=== PATIENT | male | born 1955 | race American Indian/Alaskan Native ===

== ENCOUNTER 2019-10-19 21:36 | Emergency (ER) | payer MEDICAID ==
[2019-10-19 22:30] VITALS: BP 112/62; PULSE 77
[2019-10-19] MEDS ORDERED: Albuterol/Ipratropium 3.0-0.5 MG/3 ML Neb Soln NEB ONE (22:45)
--- NOTE | 2019-10-19 22:50 | EDM.PDOC ---
ED HPI GENERAL MEDICAL PROBLEM - General Chief Complaint: Respiratory Problem Stated Complaint: COPD BLEEDING RECTAL Time Seen by Provider: 10/19/19 22:38 Source of Information: Reports: Patient, RN Notes Reviewed History Limitations: Reports: No Limitations - History of Present Illness INITIAL COMMENTS - FREE TEXT/NARRATIVE: 64-year-old gentleman presents emergency department today complaint of head congestion, he has a known history of chronic obstructive pulmonary disease is currently residing at [facility] for alcohol treatment states he is been ill for about a week has had a chills and does produce white sputum 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: Other (see below) 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: Neb head Pain Score (Numeric/FACES): 4 - Related Data Allergies Allergy/AdvReac Type Severity Reaction Status Date / Time Penicillins Allergy Severe Anaphylactic Verified 10/19/19 22:01 Shock venom-honey bee Allergy Severe Anaphylactic Verified 10/19/19 22:01 [bee venom (honey bee)] Shock Home Meds: Home Meds Folic Acid 1 mg PO BEDTIME 03/30/16 [History] Lurasidone [Latuda] 40 mg PO BEDTIME 03/30/16 [History] Mirtazapine 45 mg PO BEDTIME 03/30/16 [History] Sertraline [Zoloft] 50 mg PO DAILY 03/30/16 [History] Simvastatin [Zocor] 20 mg PO DAILY 03/30/16 [History] Tamsulosin [Flomax] 0.4 mg PO DAILY 03/30/16 [History] Thiamine [Vitamin B-1] 1 tab PO DAILY 03/30/16 [History] Albuterol [IJD: Albuterol HFA] 2 puff INH BID 07/29/16 [History] Budesonide/Formoterol [Symbicort 160-4.5 MCG] 2 puff INH BID 10/19/19 [History] Tiotropium [place] [Spiriva Respimat] 1 inh INH DAILY 10/19/19 [History] Past Medical History Respiratory History: Reports: COPD Genitourinary History: Reports: BPH, Other (See Below) Other Genitourinary History: prostate cancer Musculoskeletal History: Reports: Back Pain, Chronic, Other (See Below) Other Musculoskeletal History: herniated disc Psychiatric History: Reports: Addiction, Depression Oncologic (Cancer) History: Reports: Prostate, Other (See Below) Other Oncologic History: patient staes that he has an abdominal tumor - Infectious Disease History Infectious Disease History: Reports: Chicken Pox Other Infectious Disease History: unable to obtain - Past Surgical History GI Surgical History: Reports: Hernia, Abdominal Musculoskeletal Surgical History: Reports: Other (See Below) Social & Family History - Family History Family Medical History: Unobtainable - Tobacco Use Smoking Status *Q: Current Every Day Smoker Years of Tobacco use: 40 Packs/Tins Daily: 1 Second Hand Smoke Exposure: No - Caffeine Use Caffeine Use: Reports: Coffee - Recreational Drug Use Recreational Drug Use: No ED ROS GENERAL - Review of Systems Review Of Systems: See Below Constitutional: Reports: Chills HEENT: Reports: Sinus Problem Respiratory: Reports: No Symptoms Cardiovascular: Reports: No Symptoms GI/Abdominal: Reports: No Symptoms ED EXAM, GENERAL - Physical Exam Exam: See Below Exam Limited By: No Limitations General Appearance: Alert, WD/WN, No Apparent Distress Throat/Mouth: Normal Inspection, Normal Lips, Normal Teeth, Normal Gums, Normal Oropharynx, Normal Voice, No Airway Compromise Respiratory/Chest: No Accessory Muscle Use, Decreased Breath Sounds Cardiovascular: Regular Rate, Rhythm, No Murmur Course - Vital Signs Last Recorded V/S: Last Vital Signs Temp 98.5 F 10/19/19 22:26 Pulse 77 10/19/19 22:26 Resp 14 10/19/19 22:26 BP 112/62 10/19/19 22:26 Pulse Ox 93 L 10/19/19 22:26 - Orders/Labs/Meds Orders: Active Orders 24 hr Category Date Time Status RT Aerosol Therapy [RC] ASDIRECTED Care 10/19/19 22:45 Ordered Meds: Medications Discontinued Medications Generic Name Dose Route Start Last Admin Trade Name Shruti PRN Reason Stop Dose Admin Albuterol/Ipratropium 3 ml 10/19/19 22:45 Duoneb 3.0-0.5 Mg/3 Ml NEB 10/19/19 22:46 ONETIME ONE Departure - Departure Time of Disposition: 22:49 Disposition: Home, Self-Care 01 Condition: Fair Clinical Impression: Sinusitis Qualifiers: Sinusitis location: frontal Chronicity: acute Recurrence: non-recurrent Qualified Code(s): J01.10 - Acute frontal sinusitis, unspecified - Discharge Information Instructions: How to Perform a Sinus Rinse, [id number], Sinusitis, Adult, [id number] Referrals: PCP,None [Primary Care Provider] - Additional Instructions: Take full course of antibiotics, please followup with your primary care provider in 7-10 days if not better, please call return to the emergency department with worsening of symptoms. Sepsis Event Note - Evaluation Sepsis Screening Result: No Definite Risk - Focused Exam Vital Signs: Vital Signs Temp Pulse Resp BP Pulse Ox 10/19/19 22:26 98.5 F 77 14 112/62 93 L 10/19/19 21:59 98.6 F 80 16 109/58 L 93 L Date Exam was Performed: 10/19/19 Time Exam was Performed: 22:46 - My Orders Last 24 Hours: My Active Orders 10/19/19 22:45 RT Aerosol Therapy [RC] ASDIRECTED - Assessment/Plan Last 24 Hours: My Active Orders 10/19/19 22:45 RT Aerosol Therapy [RC] ASDIRECTED Plan: Assessment Acuity = acute Site and laterality = sinusitis Etiology = probable bacterial cause Manifestations = sinus pressure Location of injury = Home Lab values = none Plan Like to treat empirically Augmentin 875 p.o. twice daily x10 days follow-up primary care in 7 to 10 days if no improvement This note was dictated using [employer] voice recognition software please call with any questions on syntax or grammar.
[2019-10-19] MEDS ORDERED: Codeine/guaiFENesin 100mg-10 MG/5 ML Syrup 10 ML Cup PO ONE (23:14)
== END 2019-10-20 00:46 | disposition home or self-care (01) ==
LOC: JP.ED 21:36
DX: J01.10 Acute frontal sinusitis, unspecified (principal); J44.9 Chronic obstructive pulmonary disease, unspecified; N40.0 Benign prostatic hyperplasia without lower urinary tract symptoms; F32.9 Major depressive disorder, single episode, unspecified; F17.210 Nicotine dependence, cigarettes, uncomplicated; Z88.0 Allergy status to penicillin; Z91.030 Bee allergy status; Z79.899 Other long term (current) drug therapy; Z79.51 Long term (current) use of inhaled steroids
CPT/HCPCS: 99283; 99284; A9270; J7620-GY

== ENCOUNTER 2020-04-25 12:41 | Inpatient (IN) | payer MEDICAID ==
--- NOTE | 2020-04-25 13:11 | EDM.PDOCBH ---
ED HPI GENERAL MEDICAL PROBLEM - General Chief Complaint: Drug or Alcohol Abuse Stated Complaint: MEDICAL VIA [facility] Time Seen by Provider: 04/25/20 13:00 Source of Information: Reports: Patient, EMS History Limitations: Reports: Altered Mental Status, Intoxication - History of Present Illness INITIAL COMMENTS - FREE TEXT/NARRATIVE: 64-year-old male chronic alcoholic with COPD arrived at [facility] for detox but he appeared hypoxic, was fainting, and they were concerned he needed medical clearance before he could be admitted so they called the ambulance. He is obviously intoxicated. On arrival his O2 sats were only in the 80s but he was not acting significantly short of breath. No fevers or chills. He is angry that he could not get directly admitted. Onset: Unknown/Unsure - Related Data Allergies Allergy/AdvReac Type Severity Reaction Status Date / Time Penicillins Allergy Severe Anaphylactic Verified 10/19/19 22:01 Shock venom-honey bee Allergy Severe Anaphylactic Verified 10/19/19 22:01 [bee venom (honey bee)] Shock Home Meds: Home Meds Mirtazapine 45 mg PO BEDTIME 03/30/16 [History] Sertraline [Zoloft] 50 mg PO DAILY 03/30/16 [History] Simvastatin [Zocor] 20 mg PO DAILY 03/30/16 [History] Tamsulosin [Flomax] 0.4 mg PO DAILY 03/30/16 [History] Albuterol [IJD: Albuterol HFA] 2 puff INH BID 07/29/16 [History] Budesonide/Formoterol [Symbicort 160-4.5 MCG] 2 puff INH BID 10/19/19 [History] Tiotropium [place] [Spiriva Respimat] 1 inh INH DAILY 10/19/19 [History] Aspirin [Aspir 81] 81 mg PO DAILY 04/25/20 [History] Cetirizine HCl 10 mg PO DAILY 04/25/20 [History] Cholecalciferol (Vitamin D3) [Vitamin D3] 25 mcg PO DAILY 04/25/20 [History] Multivitamin [Multivitamins] 1 cap PO DAILY 04/25/20 [History] Past Medical History Respiratory History: Reports: COPD Other Respiratory History: Uses Oxygen at bedtime Gastrointestinal History: Reports: None Genitourinary History: Reports: BPH, Other (See Below) Other Genitourinary History: prostate cancer Musculoskeletal History: Reports: Back Pain, Chronic, Other (See Below) Other Musculoskeletal History: herniated disc Psychiatric History: Reports: Addiction, Depression Oncologic (Cancer) History: Reports: Prostate, Other (See Below) Other Oncologic History: patient staes that he has an abdominal tumor - Infectious Disease History Infectious Disease History: Reports: Chicken Pox Other Infectious Disease History: unable to obtain - Past Surgical History GI Surgical History: Reports: Hernia, Abdominal Musculoskeletal Surgical History: Reports: Other (See Below) Social & Family History - Family History Family Medical History: Unobtainable - Caffeine Use Caffeine Use: Reports: Coffee ED ROS GENERAL - Review of Systems Review Of Systems: See Below Constitutional: Reports: Malaise. Denies: Fever, Chills HEENT: Denies: Throat Pain Respiratory: Reports: Shortness of Breath, Wheezing GI/Abdominal: Denies: Nausea, Vomiting Skin: Reports: No Symptoms Neurological: Reports: Weakness. Denies: Headache ED EXAM, BEHAVIORAL HEALTH - Physical Exam Exam: See Below Exam Limited By: Intoxication General Appearance: Alert, Mild Distress (Initially short of breath but calmed down and sat stabilized with O2 supplementation) Eye Exam: Bilateral Eye: EOMI (No jaundice) Head: Atraumatic Respiratory/Chest: No Respiratory Distress (No significant respiratory distress at the time of my exam, he had calm down. Diffuse decreased breath sounds bilaterally) Cardiovascular: Regular Rate, Rhythm. No: Tachycardia GI/Abdominal: Soft, Non-Tender Extremities: No: Pedal Edema Neurological: Other (Patient is fairly intoxicated, responds to questions appropriately but slow with slurred speech) Psychiatric: Flat Affect, Uncooperative. No: Homicidal Thoughts, Suicidal Thoughts Skin Exam: Warm, Dry COURSE, BEHAVIORAL HEALTH COMP - Course Vital Signs: Last Vital Signs Temp 97.1 F 04/25/20 16:01 Pulse 73 04/25/20 16:01 Resp 27 H 04/25/20 16:01 BP 128/71 04/25/20 16:01 Pulse Ox 94 L 04/25/20 16:10 Orders, Labs, Meds: Medication Orders Acetaminophen (Tylenol) 650 mg PO Q4H PRN PRN Reason: Pain (Mild 1-3)/fever Albuterol (Proventil Neb Soln) 2.5 mg NEB Q4H PRN PRN Reason: Shortness Of Breath/wheezing Albuterol/Ipratropium (Duoneb 3.0-0.5 Mg/3 Ml) 3 ml NEB QIDRT [facility] Last Admin: 04/25/20 16:27 Dose: 3 ml Documented by: YANIKC Aspirin (Halfprin) 81 mg PO DAILY [facility] Cetirizine HCl (Zyrtec) 10 mg PO DAILY [facility] Chlordiazepoxide HCl (Librium) 25 mg PO Q8H [facility] Last Admin: 04/25/20 16:27 Dose: 25 mg Documented by: YANICK Enoxaparin Sodium (Lovenox) 40 mg SUBCUT Q24H [facility] Last Admin: 04/25/20 16:40 Dose: 40 mg Documented by: YANICK Folic Acid (Folic Acid) 1 mg PO DAILY [facility] Last Admin: 04/25/20 16:41 Dose: 1 mg Documented by: YANICK Gabapentin (Neurontin) 400 mg PO Q8H [facility] Last Admin: 04/25/20 16:40 Dose: 400 mg Documented by: YANICK Glycopyrrolate (Seebri Neohaler) 15.6 mcg IH BIDRT [facility] Sodium Chloride (Normal Saline) 1,000 mls @ 125 mls/hr IV ASDIRECTED [facility] Multivitamins/Minerals 10 ml/Thiamine HCl 100 mg/ Folic Acid 1 mg/ Magnesium Sulfate 2 gm/ Sodium Chloride 1,015.2 mls @ 100 mls/hr IV ONETIME ONE Stop: 04/26/20 04:09 Doxycycline Hyclate 100 mg/ (Sodium Chloride) 100 mls @ 100 mls/hr IV Q12H [facility] Last Admin: 04/25/20 17:16 Dose: 100 mls/hr Documented by: YANICK Ceftriaxone Sodium 1 gm/ (Sodium Chloride) 50 mls @ 100 mls/hr IV Q24H [facility] Last Admin: 04/25/20 16:35 Dose: 100 mls/hr Documented by: YANICK Lactobacillus Rhamnosus (Culturelle) 1 cap PO BID [facility] Last Admin: 04/25/20 16:40 Dose: 1 cap Documented by: YANICK Lorazepam (Ativan) 0 mg IV ASDIRECTED PRN; Protocol PRN Reason: ETOH WITHDRAWAL Methylprednisolone Sodium Succinate (Solu-Medrol) 40 mg IVPUSH Q6H [facility] Last Admin: 04/25/20 16:40 Dose: 40 mg Documented by: YANICK Nicotine (Habitrol) 21 mg TRDERM DAILY [facility] Last Admin: 04/25/20 16:40 Dose: 21 mg Documented by: YANICK Nicotine Polacrilex (Nicorelief) 2 mg CHEW Q1H PRN PRN Reason: Other Ondansetron HCl (Zofran) 4 mg IV Q4H PRN PRN Reason: Nausea/Vomiting Polyethylene Glycol (Miralax) 17 gm PO DAILY PRN PRN Reason: Constipation Fluticasone/Salmeterol (Fluticasone-Salmeterol 232-14 Mcg Powder Inha) 1 puff INH BIDRT [facility] Sertraline HCl (Zoloft) 50 mg PO DAILY [facility] Simvastatin (Zocor) 20 mg PO DAILY [facility] Sodium Chloride (Saline Flush) 10 ml FLUSH ASDIRECTED PRN PRN Reason: Keep Vein Open Tamsulosin HCl (Flomax) 0.4 mg PO DAILY [facility] Thiamine HCl (Vitamin B-1) 100 mg PO DAILY [facility] Last Admin: 04/25/20 16:41 Dose: 100 mg Documented by: YANICK Laboratory Tests 04/25/20 04/25/20 04/25/20 Range/Units 13:27 13:27 13:27 WBC 10.7 (4.5-11.0) K/uL RBC 5.40 (4.30-5.90) M/uL Hgb 16.1 H D (12.0-15.0) g/dL Hct 49.5 (40.0-54.0) % MCV 92 (80-98) fL MCH 30 (27-31) pg MCHC 33 (32-36) % Plt Count 261 (150-400) K/uL Neut % (Auto) 58 (36-66) % Lymph % (Auto) 35 (24-44) % Placer % (Auto) 6 (2-6) % Eos % (Auto) 0 L (2-4) % Baso % (Auto) 1 (0-1) % Sodium 143 (140-148) mmol/L Potassium 3.6 (3.6-5.2) mmol/L Chloride 102 (100-108) mmol/L Carbon Dioxide 30 (21-32) mmol/L Anion Gap 10.8 (5.0-14.0) mmol/L BUN 10 D (7-18) mg/dL Creatinine 0.9 (0.8-1.3) mg/dL Est Cr Clr Drug Dosing 81.28 mL/min Estimated GFR (MDRD) > 60 (>60) Glucose 78 (74-106) mg/dL Calcium 8.2 L (8.5-10.1) mg/dL Total Bilirubin 0.5 (0.2-1.0) mg/dL AST 81 H D (15-37) U/L ALT 66 D (12-78) U/L Alkaline Phosphatase 64 (46-116) U/L Total Protein 7.8 (6.4-8.2) g/dL Albumin 4.2 (3.4-5.0) g/dL Globulin 3.6 H (2.3-3.5) g/dL Albumin/Globulin Ratio 1.2 (1.2-2.2) Ethyl Alcohol 317 mg/dL Medications Generic Name Dose Route Start Last Admin Trade Name Freq PRN Reason Stop Dose Admin Acetaminophen 650 mg 04/25/20 16:01 Tylenol PO Q4H PRN Pain (Mild 1-3)/fever Albuterol 2.5 mg 04/25/20 16:01 Proventil Neb Soln NEB Q4H PRN Shortness Of Breath/wheezing Albuterol/Ipratropium 3 ml 04/25/20 16:00 04/25/20 16:27 Duoneb 3.0-0.5 Mg/3 Ml NEB 3 ml QIDRT [facility] Administration Aspirin 81 mg 04/26/20 09:00 Halfprin PO DAILY [facility] Cetirizine HCl 10 mg 04/26/20 09:00 Zyrtec PO DAILY [facility] Chlordiazepoxide HCl 25 mg 04/25/20 16:00 04/25/20 16:27 Librium PO 25 mg Q8H [facility] Administration Enoxaparin Sodium 40 mg 04/25/20 17:00 04/25/20 16:40 Lovenox SUBCUT 40 mg Q24H [facility] Administration Folic Acid 1 mg 04/25/20 16:01 04/25/20 16:41 Folic Acid PO 1 mg DAILY [facility] Administration Gabapentin 400 mg 04/25/20 16:00 04/25/20 16:40 Neurontin PO 400 mg Q8H [facility] Administration Glycopyrrolate 15.6 mcg 04/25/20 21:00 Seebri Neohaler IH BIDRT [facility] Sodium Chloride 1,000 mls @ 125 mls/hr 04/25/20 16:01 Normal Saline IV ASDIRECTED [facility] Multivitamins/Minerals 10 ml/ 1,015.2 mls @ 100 mls/hr 04/25/20 18:00 Thiamine HCl 100 mg/ Folic IV 04/26/20 04:09 Acid 1 mg/ Magnesium Sulfate 2 ONETIME ONE gm/ Sodium Chloride Doxycycline Hyclate 100 mg/ 100 mls @ 100 mls/hr 04/25/20 17:30 04/25/20 17:16 Sodium Chloride IV 100 mls/hr Q12H [facility] Administration Ceftriaxone Sodium 1 gm/ 50 mls @ 100 mls/hr 04/25/20 17:00 04/25/20 16:35 Sodium Chloride IV 100 mls/hr Q24H [facility] Administration Lactobacillus Rhamnosus 1 cap 04/25/20 16:01 04/25/20 16:40 Culturelle PO 1 cap BID [facility] Administration Lorazepam 0 mg 04/25/20 16:01 Ativan IV ASDIRECTED PRN ETOH WITHDRAWAL Protocol Methylprednisolone Sodium Succinate 40 mg 04/25/20 16:00 04/25/20 16:40 Solu-Medrol IVPUSH 40 mg Q6H [facility] Administration Nicotine 21 mg 04/25/20 16:01 04/25/20 16:40 Habitrol TRDERM 21 mg DAILY [facility] Administration Nicotine Polacrilex 2 mg 04/25/20 16:01 Nicorelief CHEW Q1H PRN Other Ondansetron HCl 4 mg 04/25/20 16:01 Zofran IV Q4H PRN Nausea/Vomiting Polyethylene Glycol 17 gm 04/25/20 16:01 Miralax PO DAILY PRN Constipation Fluticasone/Salmeterol 1 puff 04/25/20 21:00 Fluticasone-Salmeterol 232-14 Mcg Powder Inha INH BIDRT [facility] Sertraline HCl 50 mg 04/26/20 09:00 Zoloft PO DAILY [facility] Simvastatin 20 mg 04/26/20 09:00 Zocor PO DAILY [facility] Sodium Chloride 10 ml 04/25/20 16:01 Saline Flush FLUSH ASDIRECTED PRN Keep Vein Open Tamsulosin HCl 0.4 mg 04/26/20 09:00 Flomax PO DAILY [facility] Thiamine HCl 100 mg 04/25/20 16:01 04/25/20 16:41 Vitamin B-1 PO 100 mg DAILY [facility] Administration Re-Assessment/Re-Exam: Patient responded to supplemental oxygen. EtOH is 0.317, CBC and CMP were otherwise fairly reassuring. However the patient left of have a cigarette and was found hypoxic outside and unable to get up and come back inside. O2 s aturations had dropped again into the upper 70s to low 80s and he was unable to communicate because of hypoxia. At this point a chest x-ray was obtained that showed emphysematous changes but no infiltrate. I do not think this patient is stable enough to go to detox and I talked to Dr. Moss of the hospitalist service and he agreed to see the patient to consider admission. COVID-[address] Moss kindly saw the patient and admitted him but the patient then went AMA, signed the form and walked out. Shortly after the patient left he was found laying in the parking lot at the bottom of the stairs. He was brought back in and admitted, possibly on a 72- hour hold to prevent him from leaving again. Departure - Departure Time of Disposition: 15:27 Disposition: Admitted As Inpatient 67 Clinical Impression: COPD exacerbation Alcohol intoxication Qualifiers: Complication of substance-induced condition: uncomplicated Qualified Code(s): F10.920 - Alcohol use, unspecified with intoxication, uncomplicated - Discharge Information Sepsis Event Note (ED) - Evaluation Sepsis Screening Result: No Definite Risk - Focused Exam Vital Signs: Vital Signs Temp Pulse Resp BP Pulse Ox Pulse Ox 04/25/20 13:54 90 L 04/25/20 12:46 98.6 F 73 18 137/76 80 L 04/25/20 12:45 98.6 F 73 18 137/76 80 L
--- NOTE | 2020-04-25 14:43 | PCM.HP.2 ---
H&P History of Present Illness - General Date of Service: 04/25/20 Admit Problem/Dx: Admission Diagnosis/Problem Admission Diagnosis/Problem COPD, Severe chronic obstructive pulmonary disease Source of Information: Patient, Provider, RN Notes Reviewed History Limitations: Reports: Altered Mental Status (Intoxicated) - History of Present Illness Initial Comments - Free Text/Narative: Mr. Hernández is a 64-year-old gentleman who I was asked to see in the emergency department for admission because of hypoxia, COPD exacerbation, [facility] At the time I saw him he was very intoxicated and unable to provide a meaningful history concerning recent symptoms or events. Information obtained from emergency department staff was that he had been found unresponsive outside of [facility]. EMS was activated and when they arrived he was found to be hypoxic with oxygen saturation in the low 80s. He was placed on supplemental oxygen and brought into the emergency department for further evaluation. Oxygen saturations remained fairly good with supplemental oxygen. Chest x-ray showed no obvious infiltrates, he does have a known history of COPD. He did go outside of the emergency room for cigarette and became extremely short of breath with decreased level of consciousness and oxygen saturations into the low 70s. Following that he did agreed to admission but then shortly thereafter attempted to leave AGAINST MEDICAL ADVICE. He was found at the bottom of the ambulance ramp again hypoxic and unresponsive. At that time he was placed on a 72-hour hold, because of inability to care for himself and p lacing himself in extremely dangerous situation. - Related Data Allergies/Adverse Reactions: Allergies Allergy/AdvReac Type Severity Reaction Status Date / Time Penicillins Allergy Severe Anaphylactic Verified 10/19/19 22:01 Shock venom-honey bee Allergy Severe Anaphylactic Verified 10/19/19 22:01 [bee venom (honey bee)] Shock Home Medications: Home Meds Mirtazapine 45 mg PO BEDTIME 03/30/16 [History] Sertraline [Zoloft] 50 mg PO DAILY 03/30/16 [History] Simvastatin [Zocor] 20 mg PO DAILY 03/30/16 [History] Tamsulosin [Flomax] 0.4 mg PO DAILY 03/30/16 [History] Albuterol [IJD: Albuterol HFA] 2 puff INH BID 07/29/16 [History] Budesonide/Formoterol [Symbicort 160-4.5 MCG] 2 puff INH BID 10/19/19 [History] Tiotropium [place] [Spiriva Respimat] 1 inh INH DAILY 10/19/19 [History] Aspirin [Aspir 81] 81 mg PO DAILY 04/25/20 [History] Cetirizine HCl 10 mg PO DAILY 04/25/20 [History] Cholecalciferol (Vitamin D3) [Vitamin D3] 25 mcg PO DAILY 04/25/20 [History] Multivitamin [Multivitamins] 1 cap PO DAILY 04/25/20 [History] Past Medical History Respiratory History: Reports: COPD Other Respiratory History: Uses Oxygen at bedtime Gastrointestinal History: Reports: None Genitourinary History: Reports: BPH, Other (See Below) Other Genitourinary History: prostate cancer Musculoskeletal History: Reports: Back Pain, Chronic, Other (See Below) Other Musculoskeletal History: herniated disc Psychiatric History: Reports: Addiction, Depression Oncologic (Cancer) History: Reports: Prostate, Other (See Below) Other Oncologic History: patient staes that he has an abdominal tumor - Infectious Disease History Infectious Disease History: Reports: Chicken Pox Other Infectious Disease History: unable to obtain - Past Surgical History GI Surgical History: Reports: Hernia, Abdominal Musculoskeletal Surgical History: Reports: Other (See Below) Social & Family History - Family History Family Medical History: Unobtainable - Caffeine Use Caffeine Use: Reports: Coffee H&P Review of Systems - Review of Systems: Review Of Systems: See Below General: Reports: ROS unobtainable (Alcohol intoxication) Exam - Exam Exam: See Below - Vital Signs Vital Signs: Last Vital Signs Temp 98.6 F 04/25/20 12:46 Pulse 73 04/25/20 12:46 Resp 18 04/25/20 12:46 BP 137/76 04/25/20 12:46 Pulse Ox 90 L 04/25/20 13:54 Weight: 200 lb - Exam Quality Assessment: Supplemental Oxygen, DVT Prophylaxis General: Sedated, Lethargic HEENT: Conjunctiva Clear, Hearing Intact, Normal Nasal Septum, Posterior Pharynx Clear, Pupils Equal. No: Mucosa Moist & [place] Neck: Supple, Trachea Midline, +2 Carotid Pulse wo Bruit Lungs: Normal Respiratory Effort, Decreased Breath Sounds, Wheezing. No: Crackles, Rales, Rhonchi Cardiovascular: Regular Rate, Regular Rhythm, Normal S1, Normal S2. No: Systolic Murmur, Diastolic Murmur GI/Abdominal Exam: Soft, Non-Tender, No Organomegaly, No Distention Back Exam: Normal Inspection, Full Range of Motion Extremities: Non-Tender, No Pedal Edema Skin: Warm, Dry, Intact Neurological: Cranial Nerves Intact, Strength Equal Bilateral, Normal Speech, Normal Tone, Sensation Intact. No: Focal Deficit Neuro Extensive - Mental Status: Inattentive, Memory Loss-Recent Events, Slow Response to Commands - Patient Data Lab Results Last 24 hrs: Laboratory Results - last 24 hr 04/25/20 04/25/20 04/25/20 Range/Units 13:27 13:27 13:27 WBC 10.7 (4.5-11.0) K/uL RBC 5.40 (4.30-5.90) M/uL Hgb 16.1 H D (12.0-15.0) g/dL Hct 49.5 (40.0-54.0) % MCV 92 (80-98) fL MCH 30 (27-31) pg MCHC 33 (32-36) % Plt Count 261 (150-400) K/uL Neut % (Auto) 58 (36-66) % Lymph % (Auto) 35 (24-44) % [place] % (Auto) 6 (2-6) % Eos % (Auto) 0 L (2-4) % Baso % (Auto) 1 (0-1) % Sodium 143 (140-148) mmol/L Potassium 3.6 (3.6-5.2) mmol/L Chloride 102 (100-108) mmol/L Carbon Dioxide 30 (21-32) mmol/L Anion Gap 10.8 (5.0-14.0) mmol/L BUN 10 D (7-18) mg/dL Creatinine 0.9 (0.8-1.3) mg/dL Est Cr Clr Drug Dosing 81.28 mL/min Estimated GFR (MDRD) > 60 (>60) Glucose 78 (74-106) mg/dL Calcium 8.2 L (8.5-10.1) mg/dL Total Bilirubin 0.5 (0.2-1.0) mg/dL AST 81 H D (15-37) U/L ALT 66 D (12-78) U/L Alkaline Phosphatase 64 (46-116) U/L Total Protein 7.8 (6.4-8.2) g/dL Albumin 4.2 (3.4-5.0) g/dL Globulin 3.6 H (2.3-3.5) g/dL Albumin/Globulin Ratio 1.2 (1.2-2.2) Ethyl Alcohol 317 mg/dL Result Diagrams: 04/25/20 13:27 04/25/20 13:27 Sepsis Event Note - Evaluation Sepsis Screening Result: No Definite Risk - Focused Exam Vital Signs: Vital Signs Temp Pulse Resp BP Pulse Ox Pulse Ox 04/25/20 13:54 90 L 04/25/20 12:46 98.6 F 73 18 137/76 80 L 04/25/20 12:45 98.6 F 73 18 137/76 80 L Date Exam was Performed: 04/25/20 Time Exam was Performed: 15:43 *Q Meaningful Use (ADM) - VTE Risk Assess *Q Each Risk Factor Represents 1 Point: Obesity ( BMI > 25 kg/m2), Abnormal Pulmonary Function (COPD) Total Score 1 Point Risk Factors: 2 Each Risk Factor Represents 2 Points: None Total Score 2 Point Risk Factors: 0 Each Risk Factor Represents 3 Points: None Total Score 3 Point Risk Factors: 0 Each Risk Factor Represents 5 Points: None Total Score 5 Point Risk Factors: 0 Venous Thromboembolism Risk Factor Score *Q: 2 Problem List Initiated/Reviewed/Updated: Yes Orders Last 24hrs: Active Orders 24 hr Category Date Time Status Patient Status Manage Transfer [TRANSFER] Routine ADT 04/25/20 14:31 Ordered Chest 1V Frontal [CR] Routine Exams 04/25/20 13:56 Taken CORONAVIRUS COVID-19 ANDREI [MOLEC] Routine Lab 04/25/20 14:35 Received Resuscitation Status Routine Resus Stat 04/25/20 14:33 Ordered Assessment/Plan Comment:: ASSESSMENT AND PLAN HYPOXIC RESPIRATORY FAILURE-secondary to COPD exacerbation and probable underlying bronchitis, located by significant alcohol intoxication -Arterial blood gases now -Supplemental oxygen as needed -Nebulized albuterol and DuoNebs -Solu-Medrol 40 mg IV every 6 hours -IV ceftriaxone and doxycycline -Consider use of noninvasive positive pressure ventilation for further respiratory compromise COPD EXACERBATION-he does use oxygen at night, but not during the day -Management as above BRONCHITIS-did and found to be negative to COVID-19 -Management as above ALCOHOL INTOXICATION-he has continued to place himself in an unsafe situation. He has been found at the end of the ambulance ramp hypoxic and unresponsive. -72-hour hold so he can be adequately treated for hypoxia -Alcohol withdrawal protocol -Banana bag -Gabapentin 400 mg p.o. every 8 hours MAINTENANCE ISSUES -DVT prophylaxis; Lovenox 40 mg subcu daily -GI prophylaxis; not indicated -Klein catheter; not indicated -Nutrition; regular diet -Nicotine dependence; nicotine patch and gum CODE STATUS-FULL CODE ADMISSION STATUS-patient will be admitted to inpatient status, expect at least a 2 night hospital stay for evaluation and management of problems as outlined above. At the time of this admission I do not reasonably expected evaluation and management of this problem will require more than a 96 hour hospital stay. DISPOSITION-anticipate discharge to home after the hospital stay. PRIMARY CARE PROVIDER- - Mortality Measure Prognosis:: Good
--- NOTE | 2020-04-25 15:30 | CR ---
CHEST: Portable 04/25/2020 at 2:10 PM CLINICAL HISTORY:Dyspnea COMPARISON:2016 FINDINGS: The heart size, pulmonary vascularity and hilar structures are normal. No infiltrate effusion or pneumothorax is seen. There are atherosclerotic changes in the aorta. IMPRESSION: No acute cardiopulmonary process.
[2020-04-25] MEDS ORDERED: Polyethylene Glycol 3350 Powder 17 GM Packet PO PRN (16:01)
[2020-04-25] MEDS ORDERED: Albuterol 0.083% 2.5 MG/3 ML Neb Soln NEB PRN (16:01)
[2020-04-25] MEDS ORDERED: Sodium Chloride 0.9% 1,000 ML IV SCH (16:01)
[2020-04-25] MEDS ORDERED: Nicotine Polacrilex 2 MG Gum CHEW PRN (16:01)
[2020-04-25] MEDS ORDERED: Ondansetron 4 MG/2 ML SDV IV PRN (16:01)
[2020-04-25] MEDS ORDERED: Sodium Chloride 0.9% 10 ML Syringe FLUSH PRN (16:01)
[2020-04-25] MEDS ORDERED: LORazepam 2 MG/ML SDV IV PRN (16:01)
[2020-04-25] MEDS: chlordiazePOXIDE 25 MG Cap PO SCH (16:27)
[2020-04-25] MEDS: Albuterol/Ipratropium 3.0-0.5 MG/3 ML Neb Soln NEB SCH ×2 (16:27→20:49)
[2020-04-25] MEDS: cefTRIAXone 1 GM in Sodium Chloride 0.9% 50 ML IV SCH (16:35)
[2020-04-25] MEDS: Nicotine 21 MG/24 Hr Patch TRDERM SCH (16:40)
[2020-04-25] MEDS: Lactobacillus Rhamnosus GG (Probiotic) Cap PO SCH ×2 (16:40→20:49)
[2020-04-25] MEDS: methylPREDNISolone Sodium Succinate 40 MG/1 ML SDV IVPUSH SCH ×2 (16:40→21:53)
[2020-04-25] MEDS: Gabapentin 400 MG Cap PO SCH (16:40)
[2020-04-25] MEDS: Enoxaparin 40 MG/0.4 ML Syringe SUBCUT SCH (16:40)
[2020-04-25] MEDS: Folic Acid 1 MG Tab PO SCH (16:41)
[2020-04-25] MEDS: Thiamine 100 MG Tab PO SCH (16:41)
[2020-04-25] MEDS: Doxycycline 100 MG in Sodium Chloride 0.9% 100 ML IV SCH (17:16)
[2020-04-25] MEDS: Acetaminophen 325 MG Tab PO PRN (17:38)
[2020-04-25] MEDS ORDERED: MVI, Adult with Vitamin K 10 ML, Thiamine 100 MG, Folic Acid 1 MG, Magnesium Sulfate 2 ... IV ONE ×5 (18:00)
[2020-04-25] MEDS: Glycopyrrolate 15.6 MCG Cap.W.Dev Kit of 6 IH SCH (20:49)
[2020-04-25] MEDS: Fluticasone-Salmeterol 232-14 MCG Powder Inhalent INH SCH (20:49)
[2020-04-26] MEDS: Gabapentin 400 MG Cap PO SCH ×4 (01:24→21:57)
[2020-04-26] MEDS: chlordiazePOXIDE 25 MG Cap PO SCH ×4 (01:24→21:57)
[2020-04-26] MEDS: methylPREDNISolone Sodium Succinate 40 MG/1 ML SDV IVPUSH SCH ×4 (04:48→21:08)
[2020-04-26] MEDS: Doxycycline 100 MG in Sodium Chloride 0.9% 100 ML IV SCH ×2 (04:49→16:38)
[2020-04-26] MEDS: Fluticasone-Salmeterol 232-14 MCG Powder Inhalent INH SCH ×2 (07:01→21:07)
[2020-04-26] MEDS: Glycopyrrolate 15.6 MCG Cap.W.Dev Kit of 6 IH SCH ×2 (07:01→21:07)
[2020-04-26] MEDS: Albuterol/Ipratropium 3.0-0.5 MG/3 ML Neb Soln NEB SCH ×4 (07:01→21:07)
[2020-04-26] MEDS: Nicotine 21 MG/24 Hr Patch TRDERM SCH (08:10)
[2020-04-26] MEDS: Cetirizine 10 MG Tab PO SCH (08:10)
[2020-04-26] MEDS: Folic Acid 1 MG Tab PO SCH (08:10)
[2020-04-26] MEDS: Sertraline 50 MG Tab PO SCH (08:10)
[2020-04-26] MEDS: Thiamine 100 MG Tab PO SCH (08:10)
[2020-04-26] MEDS: Simvastatin 20 MG Tab PO SCH (08:10)
[2020-04-26] MEDS: Aspirin 81 MG Tab.EC PO SCH (08:10)
[2020-04-26] MEDS: Lactobacillus Rhamnosus GG (Probiotic) Cap PO SCH ×2 (08:10→21:08)
[2020-04-26] MEDS: Tamsulosin 0.4 MG Cap.ER PO SCH (08:10)
--- NOTE | 2020-04-26 09:13 | PCM.PN ---
- General Info Date of Service: 04/26/20 Subjective Update: Mr. Hernández did have increased respiratory compromise after admission, requiring use of noninvasive positive pressure ventilation. This worked well for him through the night and he feels as though his breathing is better this morning. Currently has adequate oxygenation on 3 L of oxygen via nasal cannula. Vital signs have otherwise been stable and he has remained afebrile. Functional Status: Reports: Tolerating Diet, Ambulating, Urinating - Review of Systems General: Reports: Weakness, Fatigue. Denies: Fever, Chills Pulmonary: Reports: Shortness of Breath, Wheezing. Denies: Pleuritic Chest Pain, Cough, Sputum, Hemoptysis Cardiovascular: Reports: Dyspnea on Exertion. Denies: Chest Pain, Palpitations, Orthopnea, PND, Edema, Lightheadedness Gastrointestinal: Reports: No Symptoms - Patient Data Vitals - Most Recent: Last Vital Signs Temp 96.1 F L 04/26/20 07:00 Pulse 76 04/26/20 07:01 Resp 15 04/26/20 07:00 BP 128/78 04/26/20 07:00 Pulse Ox 90 L 04/26/20 07:00 Weight - Most Recent: 174 lb 3.2 oz I&O - Last 24 Hours: Intake & Output 04/25/20 04/26/20 04/26/20 22:59 06:59 14:59 Intake Total 600 1384 Balance 600 1384 Lab Results Last 24 Hours: Laboratory Results - last 24 hr 04/25/20 04/25/20 04/25/20 Range/Units 13:27 13:27 13:27 WBC 10.7 (4.5-11.0) K/uL RBC 5.40 (4.30-5.90) M/uL Hgb 16.1 H D (12.0-15.0) g/dL Hct 49.5 (40.0-54.0) % MCV 92 (80-98) fL MCH 30 (27-31) pg MCHC 33 (32-36) % Plt Count 261 (150-400) K/uL Neut % (Auto) 58 (36-66) % Lymph % (Auto) 35 (24-44) % [place] % (Auto) 6 (2-6) % Eos % (Auto) 0 L (2-4) % Baso % (Auto) 1 (0-1) % Puncture Site ABG pH (7.350-7.450) ABG pCO2 (35.0-42.0) mmHg ABG pO2 (75.0-100.0) mmHg ABG HCO3 (22.0-26.0) mmol/L ABG Total CO2 (23.0-27.0) mmol/L ABG O2 Saturation (95.0-98.0) % ABG O2 Content (15.0-23.0) %vol ABG Base Excess mm/L ABG Hemoglobin (13.5-18.0) g/dL ABG Oxyhemoglobin % ABG Carboxyhemoglobin (0.0-1.6) % ABG Methemoglobin % Kwadwo Test O2 Delivery Device Oxygen Flow Rate L Sodium 143 (140-148) mmol/L Potassium 3.6 (3.6-5.2) mmol/L Chloride 102 (100-108) mmol/L Carbon Dioxide 30 (21-32) mmol/L Anion Gap 10.8 (5.0-14.0) mmol/L BUN 10 D (7-18) mg/dL Creatinine 0.9 (0.8-1.3) mg/dL Est Cr Clr Drug Dosing 81.28 mL/min Estimated GFR (MDRD) > 60 (>60) Glucose 78 (74-106) mg/dL Calcium 8.2 L (8.5-10.1) mg/dL Magnesium (1.8-2.4) mg/dL Total Bilirubin 0.5 (0.2-1.0) mg/dL AST 81 H D (15-37) U/L ALT 66 D (12-78) U/L Alkaline Phosphatase 64 (46-116) U/L Total Protein 7.8 (6.4-8.2) g/dL Albumin 4.2 (3.4-5.0) g/dL Globulin 3.6 H (2.3-3.5) g/dL Albumin/Globulin Ratio 1.2 (1.2-2.2) Ethyl Alcohol 317 mg/dL SARS Virus RNA (PCR) (NEGATIVE) 04/25/20 04/25/20 04/25/20 Range/Units 14:35 15:58 23:15 WBC (4.5-11.0) K/uL RBC (4.30-5.90) M/uL Hgb (12.0-15.0) g/dL Hct (40.0-54.0) % MCV (80-98) fL MCH (27-31) pg MCHC (32-36) % Plt Count (150-400) K/uL Neut % (Auto) (36-66) % Lymph % (Auto) (24-44) % [place] % (Auto) (2-6) % Eos % (Auto) (2-4) % Baso % (Auto) (0-1) % Puncture Site Lt radial Lt radial ABG pH 7.356 7.329 L (7.350-7.450) ABG pCO2 26.1 L 61.7 H (35.0-42.0) mmHg ABG pO2 55.3 L 87.6 (75.0-100.0) mmHg ABG HCO3 14.2 L 31.6 H (22.0-26.0) mmol/L ABG Total CO2 12.4 L 27.9 H (23.0-27.0) mmol/L ABG O2 Saturation 86.7 L 95.2 (95.0-98.0) % ABG O2 Content 17.1 18.9 (15.0-23.0) %vol ABG Base Excess -9.3 4.0 mm/L ABG Hemoglobin 15.7 15.1 (13.5-18.0) g/dL ABG Oxyhemoglobin 77.6 89.2 % ABG Carboxyhemoglobin 9.6 H 5.6 H (0.0-1.6) % ABG Methemoglobin 0.9 0.7 % Kwadwo Test Performed Passed O2 Delivery Device Nasal cannula Bipap Oxygen Flow Rate L Sodium (140-148) mmol/L Potassium (3.6-5.2) mmol/L Chloride (100-108) mmol/L Carbon Dioxide (21-32) mmol/L Anion Gap (5.0-14.0) mmol/L BUN (7-18) mg/dL Creatinine (0.8-1.3) mg/dL Est Cr Clr Drug Dosing mL/min Estimated GFR (MDRD) (>60) Glucose (74-106) mg/dL Calcium (8.5-10.1) mg/dL Magnesium (1.8-2.4) mg/dL Total Bilirubin (0.2-1.0) mg/dL AST (15-37) U/L ALT (12-78) U/L Alkaline Phosphatase (46-116) U/L Total Protein (6.4-8.2) g/dL Albumin (3.4-5.0) g/dL Globulin (2.3-3.5) g/dL Albumin/Globulin Ratio (1.2-2.2) Ethyl Alcohol mg/dL SARS Virus RNA (PCR) Negative (NEGATIVE) 04/26/20 04/26/20 04/26/20 Range/Units 05:00 05:00 05:50 WBC 5.1 (4.5-11.0) K/uL RBC 4.83 (4.30-5.90) M/uL Hgb 14.5 (12.0-15.0) g/dL Hct 44.1 (40.0-54.0) % MCV 91 (80-98) fL MCH 30 (27-31) pg MCHC 33 (32-36) % Plt Count 223 (150-400) K/uL Neut % (Auto) 70 H (36-66) % Lymph % (Auto) 26 (24-44) % [place] % (Auto) 3 (2-6) % Eos % (Auto) 0 L (2-4) % Baso % (Auto) 0 (0-1) % Puncture Site Left radial ABG pH 7.373 (7.350-7.450) ABG pCO2 58.7 H (35.0-42.0) mmHg ABG pO2 57.6 L (75.0-100.0) mmHg ABG HCO3 33.4 H (22.0-26.0) mmol/L ABG Total CO2 29.5 H (23.0-27.0) mmol/L ABG O2 Saturation 87.4 L (95.0-98.0) % ABG O2 Content 16.9 (15.0-23.0) %vol ABG Base Excess 6.6 mm/L ABG Hemoglobin 14.5 (13.5-18.0) g/dL ABG Oxyhemoglobin 83.4 % ABG Carboxyhemoglobin 3.6 H (0.0-1.6) % ABG Methemoglobin 1.0 % Kwadwo Test Passed O2 Delivery Device Nasal cannula Oxygen Flow Rate 2.0 L Sodium 138 L (140-148) mmol/L Potassium 4.4 (3.6-5.2) mmol/L Chloride 100 (100-108) mmol/L Carbon Dioxide 34 H (21-32) mmol/L Anion Gap 8.4 (5.0-14.0) mmol/L BUN 8 (7-18) mg/dL Creatinine 0.8 (0.8-1.3) mg/dL Est Cr Clr Drug Dosing 91.44 mL/min Estimated GFR (MDRD) > 60 (>60) Glucose 243 H (74-106) mg/dL Calcium 8.2 L (8.5-10.1) mg/dL Magnesium 2.2 (1.8-2.4) mg/dL Total Bilirubin (0.2-1.0) mg/dL AST (15-37) U/L ALT (12-78) U/L Alkaline Phosphatase (46-116) U/L Total Protein (6.4-8.2) g/dL Albumin (3.4-5.0) g/dL Globulin (2.3-3.5) g/dL Albumin/Globulin Ratio (1.2-2.2) Ethyl Alcohol mg/dL SARS Virus RNA (PCR) (NEGATIVE) Med Orders - Current: Current Medications Acetaminophen (Tylenol) 650 mg PO Q4H PRN PRN Reason: Pain (Mild 1-3)/fever Last Admin: 04/25/20 17:38 Dose: 650 mg Documented by: Albuterol (Proventil Neb Soln) 2.5 mg NEB Q4H PRN PRN Reason: Shortness Of Breath/wheezing Albuterol/Ipratropium (Duoneb 3.0-0.5 Mg/3 Ml) 3 ml NEB QIDRT [facility] Last Admin: 04/26/20 07:01 Dose: 3 ml Documented by: Aspirin (Halfprin) 81 mg PO DAILY [facility] Last Admin: 04/26/20 08:10 Dose: 81 mg Documented by: Cetirizine HCl (Zyrtec) 10 mg PO DAILY [facility] Last Admin: 04/26/20 08:10 Dose: 10 mg Documented by: Chlordiazepoxide HCl (Librium) 25 mg PO Q8H [facility] Last Admin: 04/26/20 07:38 Dose: 25 mg Documented by: Enoxaparin Sodium (Lovenox) 40 mg SUBCUT Q24H [facility] Last Admin: 04/25/20 16:40 Dose: 40 mg Documented by: Folic Acid (Folic Acid) 1 mg PO DAILY [facility] Last Admin: 04/26/20 08:10 Dose: 1 mg Documented by: Gabapentin (Neurontin) 400 mg PO Q8H [facility] Last Admin: 04/26/20 07:38 Dose: 400 mg Documented by: Glycopyrrolate (Seebri Neohaler) 15.6 mcg IH BIDRT [facility] Last Admin: 04/26/20 07:01 Dose: 1 puff Documented by: Sodium Chloride (Normal Saline) 1,000 mls @ 125 mls/hr IV ASDIRECTED [facility] Last Admin: 04/26/20 04:55 Dose: 125 mls/hr Documented by: Doxycycline Hyclate 100 mg/ (Sodium Chloride) 100 mls @ 100 mls/hr IV Q12H [facility] Last Admin: 04/26/20 04:49 Dose: 100 mls/hr Documented by: Ceftriaxone Sodium 1 gm/ (Sodium Chloride) 50 mls @ 100 mls/hr IV Q24H [facility] Last Admin: 04/25/20 16:35 Dose: 100 mls/hr Documented by: Lactobacillus Rhamnosus (Culturelle) 1 cap PO BID [facility] Last Admin: 04/26/20 08:10 Dose: 1 cap Documented by: Lorazepam (Ativan) 0 mg IV ASDIRECTED PRN; Protocol PRN Reason: ETOH WITHDRAWAL Last Admin: 04/25/20 20:50 Dose: 0.5 mg Documented by: Methylprednisolone Sodium Succinate (Solu-Medrol) 40 mg IVPUSH Q6H [facility] Last Admin: 04/26/20 04:48 Dose: 40 mg Documented by: Nicotine (Habitrol) 21 mg TRDERM DAILY [facility] Last Admin: 04/26/20 08:10 Dose: 21 mg Documented by: Nicotine Polacrilex (Nicorelief) 2 mg CHEW Q1H PRN PRN Reason: Other Ondansetron HCl (Zofran) 4 mg IV Q4H PRN PRN Reason: Nausea/Vomiting Last Admin: 04/26/20 05:00 Dose: 4 mg Documented by: Polyethylene Glycol (Miralax) 17 gm PO DAILY PRN PRN Reason: Constipation Fluticasone/Salmeterol (Fluticasone-Salmeterol 232-14 Mcg Powder Inha) 1 puff INH BIDRT [facility] Last Admin: 04/26/20 07:01 Dose: 1 puff Documented by: Sertraline HCl (Zoloft) 50 mg PO DAILY [facility] Last Admin: 04/26/20 08:10 Dose: 50 mg Documented by: Simvastatin (Zocor) 20 mg PO DAILY [facility] Last Admin: 04/26/20 08:10 Dose: 20 mg Documented by: Sodium Chloride (Saline Flush) 10 ml FLUSH ASDIRECTED PRN PRN Reason: Keep Vein Open Tamsulosin HCl (Flomax) 0.4 mg PO DAILY [facility] Last Admin: 04/26/20 08:10 Dose: 0.4 mg Documented by: Thiamine HCl (Vitamin B-1) 100 mg PO DAILY [facility] Last Admin: 04/26/20 08:10 Dose: 100 mg Documented by: Discontinued Medications Multivitamins/Minerals 10 ml/Thiamine HCl 100 mg/ Folic Acid 1 mg/ Magnesium Sulfate 2 gm/ Sodium Chloride 1,015.2 mls @ 100 mls/hr IV ONETIME ONE Stop: 04/26/20 04:09 Last Admin: 04/25/20 18:57 Dose: 100 mls/hr Documented by: - Exam Quality Assessment: Supplemental Oxygen, DVT Prophylaxis General: Alert, Oriented, Cooperative, Mild Distress Lungs: Normal Respiratory Effort, Wheezing. No: Crackles, Rales, Rhonchi Cardiovascular: Regular Rate, Regular Rhythm, No Murmurs GI/Abdominal Exam: Soft, Non-Tender, No Organomegaly, No Distention Extremities: Non-Tender, No Pedal Edema Sepsis Event Note - Evaluation Sepsis Screening Result: No Definite Risk - Focused Exam Vital Signs: Vital Signs Temp Pulse Resp BP Pulse Ox 04/26/20 07:01 76 04/26/20 07:00 96.1 F L 83 15 128/78 90 L 04/26/20 05:10 96.6 F L 14 127/78 91 L 04/26/20 04:00 15 130/67 94 L 04/26/20 03:00 18 120/64 90 L 04/26/20 01:00 22 H 115/57 L 93 L 04/26/20 00:00 20 123/61 92 L 04/25/20 23:00 22 H 119/55 L 95 04/25/20 22:00 89 29 H 119/64 86 L Date Exam was Performed: 04/26/20 Time Exam was Performed: 09:09 - Problem List Review Problem List Initiated/Reviewed/Updated: Yes - My Orders Last 24 Hours: My Active Orders 04/25/20 Lunch Regular Diet [DIET] 04/25/20 14:33 Resuscitation Status Routine 04/25/20 16:00 Albuterol/Ipratropium [DuoNeb 3.0-0.5 MG/3 ML] 3 ml NEB QIDRT Gabapentin [Neurontin] 400 mg PO Q8H chlordiazePOXIDE [Librium] 25 mg PO Q8H methylPREDNISolone Sod Succ [Solu-MEDROL] 40 mg IVPUSH Q6H 04/25/20 16:01 Acetaminophen [Tylenol] 650 mg PO Q4H PRN Albuterol [Proventil Neb Soln] 2.5 mg NEB Q4H PRN Folic Acid 1 mg PO DAILY LORazepam [Ativan] See Protocol IV ASDIRECTED PRN Lactobacillus Rhamnosus GG [Culturelle] 1 cap PO BID Nicotine Polacrilex [Nicorelief] 2 mg CHEW Q1H PRN Nicotine [Habitrol] 21 mg TRDERM DAILY Ondansetron [Zofran] 4 mg IV Q4H PRN Sodium Chloride 0.9% [Normal Saline] 1,000 ml IV ASDIRECTED Sodium Chloride 0.9% [Saline Flush] 10 ml FLUSH ASDIRECTED PRN Thiamine [Vitamin B-1] 100 mg PO DAILY polyethylene glycoL 3350 [MiraLAX] 17 gm PO DAILY PRN 04/25/20 16:01 Patient Status [ADT] Routine Ambulate [RC] QID CIWAA Assessment [RC] Q4H Cardiac Monitoring [RC] Q6HR Height and Weight [RC] DAILY Intake and Output [RC] QSHIFT Notify Provider Vital Signs [RC] ASDIRECTED Notify Provider [RC] PRN Oxygen Therapy [RC] PRN Peripheral IV Care [RC] . DIRECTED Pulse Oximetry [RC] CONTINUOUS RT Aerosol Therapy [RC] ASDIRECTED Up With Assistance [RC] ASDIRECTED Up to Chair [RC] QID VTE/DVT Education [RC] Per Unit Routine Vital Signs [RC] Q2H Peripheral IV Insertion Adult [OM.PC] Routine 04/25/20 17:00 Enoxaparin [Lovenox] 40 mg SUBCUT Q24H cefTRIAXone [Rocephin] 1 gm Sodium Chloride 0.9% [Normal Saline] 50 ml IV Q24H 04/25/20 17:30 Doxycycline [Vibramycin] 100 mg Sodium Chloride 0.9% [Normal Saline] 100 ml IV Q12H 04/25/20 21:00 Fluticasone/Salmeterol [Fluticasone-Salmeterol 232-14 MCG Powder Inha] 1 puff INH BIDRT Glycopyrrolate [Seebri Neohaler] 15.6 mcg IH BIDRT 04/25/20 21:30 RT BiPAP/CPAP [RC] ASDIRECTED 04/26/20 09:00 Aspirin [Halfprin] 81 mg PO DAILY Cetirizine [ZyrTEC] 10 mg PO DAILY Sertraline [Zoloft] 50 mg PO DAILY Simvastatin [Zocor] 20 mg PO DAILY Tamsulosin [Flomax] 0.4 mg PO DAILY 04/26/20 09:08 Convert IV to Saline Lock [OM.PC] Routine 04/27/20 05:00 BASIC METABOLIC PANEL,BMP [CHEM] Timed - Plan Plan:: ASSESSMENT AND PLAN HYPOXIC RESPIRATORY FAILURE-secondary to COPD exacerbation and probable underlying bronchitis, respiratory status worsened after admission requiring use of noninvasive positive pressure ventilation -Supplemental oxygen as needed -Nebulized albuterol and DuoNebs -Solu-Medrol 40 mg IV every 6 hours -IV ceftriaxone and doxycycline -Continue use of noninvasive positive pressure ventilation as needed COPD EXACERBATION-he does use oxygen at night, but not during the day -Management as above BRONCHITIS -Management as above ALCOHOL INTOXICATION-resolved, closely monitor for alcohol withdrawal -Alcohol withdrawal protocol -Banana bag -Gabapentin 400 mg p.o. every 8 hours MAINTENANCE ISSUES -DVT prophylaxis; Lovenox 40 mg subcu daily -GI prophylaxis; not indicated -Klein catheter; not indicated -Nutrition; regular diet -Nicotine dependence; nicotine patch and gum CODE STATUS-FULL CODE ADMISSION STATUS-patient will be admitted to inpatient status, expect at least a 2 night hospital stay for evaluation and management of problems as outlined above. At the time of this admission I do not reasonably expected evaluation and management of this problem will require more than a 96 hour hospital stay. DISPOSITION-anticipate discharge to home after the hospital stay. PRIMARY CARE PROVIDER-
[2020-04-26] MEDS: Enoxaparin 40 MG/0.4 ML Syringe SUBCUT SCH (15:59)
[2020-04-26] MEDS: cefTRIAXone 1 GM in Sodium Chloride 0.9% 50 ML IV SCH (16:04)
[2020-04-27] MEDS: methylPREDNISolone Sodium Succinate 40 MG/1 ML SDV IVPUSH SCH ×2 (04:27→10:05)
[2020-04-27] MEDS: Doxycycline 100 MG in Sodium Chloride 0.9% 100 ML IV SCH ×2 (04:30→17:02)
[2020-04-27] MEDS: Gabapentin 400 MG Cap PO SCH ×3 (05:33→21:32)
[2020-04-27] MEDS: chlordiazePOXIDE 25 MG Cap PO SCH ×3 (05:33→21:32)
[2020-04-27] MEDS: Albuterol/Ipratropium 3.0-0.5 MG/3 ML Neb Soln NEB SCH ×4 (06:59→21:31)
[2020-04-27] MEDS: Glycopyrrolate 15.6 MCG Cap.W.Dev Kit of 6 IH SCH ×2 (06:59→21:51)
[2020-04-27] MEDS: Fluticasone-Salmeterol 232-14 MCG Powder Inhalent INH SCH ×2 (07:00→21:30)
[2020-04-27] MEDS: Cetirizine 10 MG Tab PO SCH (10:01)
[2020-04-27] MEDS: Lactobacillus Rhamnosus GG (Probiotic) Cap PO SCH ×2 (10:01→21:31)
[2020-04-27] MEDS: Aspirin 81 MG Tab.EC PO SCH (10:01)
[2020-04-27] MEDS: Simvastatin 20 MG Tab PO SCH (10:02)
[2020-04-27] MEDS: Tamsulosin 0.4 MG Cap.ER PO SCH (10:02)
[2020-04-27] MEDS: Thiamine 100 MG Tab PO SCH (10:02)
[2020-04-27] MEDS: Folic Acid 1 MG Tab PO SCH (10:02)
[2020-04-27] MEDS: Nicotine 21 MG/24 Hr Patch TRDERM SCH (10:03)
[2020-04-27] MEDS: Sertraline 50 MG Tab PO SCH (10:03)
--- NOTE | 2020-04-27 10:16 | PCM.PN ---
- General Info Date of Service: 04/27/20 Subjective Update: Mr. Hernández has been stable since yesterday, he feels as though his respiratory status is close to baseline. Vital signs have been good and he has remained afebrile. No evidence of significant alcohol withdrawal noted thus far. Functional Status: Reports: Tolerating Diet, Urinating - Review of Systems General: Reports: Weakness. Denies: Fever, Chills Pulmonary: Reports: Shortness of Breath, Cough, Wheezing. Denies: Pleuritic Chest Pain, Sputum, Hemoptysis Cardiovascular: Reports: Dyspnea on Exertion. Denies: Chest Pain, Palpitations, Orthopnea, PND, Edema, Lightheadedness Gastrointestinal: Reports: No Symptoms - Patient Data Vitals - Most Recent: Last Vital Signs Temp 96.4 F L 04/27/20 08:00 Pulse 68 04/27/20 08:00 Resp 24 H 04/27/20 08:00 BP 131/84 04/27/20 08:00 Pulse Ox 89 L 04/27/20 08:00 Weight - Most Recent: 185 lb I&O - Last 24 Hours: Intake & Output 04/26/20 04/27/20 04/27/20 22:59 06:59 14:59 Output Total 275 Balance -275 Lab Results Last 24 Hours: Laboratory Results - last 24 hr 04/27/20 Range/Units 05:00 Sodium 139 L (140-148) mmol/L Potassium 4.5 (3.6-5.2) mmol/L Chloride 102 (100-108) mmol/L Carbon Dioxide 32 (21-32) mmol/L Anion Gap 9.5 (5.0-14.0) mmol/L BUN 8 (7-18) mg/dL Creatinine 0.7 L (0.8-1.3) mg/dL Est Cr Clr Drug Dosing 104.89 mL/min Estimated GFR (MDRD) > 60 (>60) Glucose 199 H (74-106) mg/dL Calcium 8.6 (8.5-10.1) mg/dL Med Orders - Current: Current Medications Acetaminophen (Tylenol) 650 mg PO Q4H PRN PRN Reason: Pain (Mild 1-3)/fever Last Admin: 04/25/20 17:38 Dose: 650 mg Documented by: Albuterol (Proventil Neb Soln) 2.5 mg NEB Q4H PRN PRN Reason: Shortness Of Breath/wheezing Albuterol/Ipratropium (Duoneb 3.0-0.5 Mg/3 Ml) 3 ml NEB QIDRT [facility] Last Admin: 04/27/20 06:59 Dose: 3 ml Documented by: Aspirin (Halfprin) 81 mg PO DAILY [facility] Last Admin: 04/27/20 10:01 Dose: 81 mg Documented by: Cetirizine HCl (Zyrtec) 10 mg PO DAILY [facility] Last Admin: 04/27/20 10:01 Dose: 10 mg Documented by: Chlordiazepoxide HCl (Librium) 25 mg PO Q8H [facility] Last Admin: 04/27/20 05:33 Dose: 25 mg Documented by: Enoxaparin Sodium (Lovenox) 40 mg SUBCUT Q24H [facility] Last Admin: 04/26/20 15:59 Dose: 40 mg Documented by: Folic Acid (Folic Acid) 1 mg PO DAILY [facility] Last Admin: 04/27/20 10:02 Dose: 1 mg Documented by: Gabapentin (Neurontin) 400 mg PO Q8H [facility] Last Admin: 04/27/20 05:33 Dose: 400 mg Documented by: Glycopyrrolate (Seebri Neohaler) 15.6 mcg IH BIDRT [facility] Last Admin: 04/27/20 06:59 Dose: 1 puff Documented by: Doxycycline Hyclate 100 mg/ (Sodium Chloride) 100 mls @ 100 mls/hr IV Q12H [facility] Last Admin: 04/27/20 04:30 Dose: 100 mls/hr Documented by: Lactobacillus Rhamnosus (Culturelle) 1 cap PO BID [facility] Last Admin: 04/27/20 10:01 Dose: 1 cap Documented by: Lorazepam (Ativan) 0 mg IV ASDIRECTED PRN; Protocol PRN Reason: ETOH WITHDRAWAL Last Admin: 04/25/20 20:50 Dose: 0.5 mg Documented by: Nicotine (Habitrol) 21 mg TRDERM DAILY [facility] Last Admin: 04/27/20 10:03 Dose: 21 mg Documented by: Nicotine Polacrilex (Nicorelief) 2 mg CHEW Q1H PRN PRN Reason: Other Ondansetron HCl (Zofran) 4 mg IV Q4H PRN PRN Reason: Nausea/Vomiting Last Admin: 04/26/20 05:00 Dose: 4 mg Documented by: Polyethylene Glycol (Miralax) 17 gm PO DAILY PRN PRN Reason: Constipation Prednisone (Prednisone) 40 mg PO WITHBREAKFAST [facility] Fluticasone/Salmeterol (Fluticasone-Salmeterol 232-14 Mcg Powder Inha) 1 puff INH BIDRT [facility] Last Admin: 04/27/20 07:00 Dose: 1 puff Documented by: Sertraline HCl (Zoloft) 50 mg PO DAILY [facility] Last Admin: 04/27/20 10:03 Dose: 50 mg Documented by: Simvastatin (Zocor) 20 mg PO DAILY [facility] Last Admin: 04/27/20 10:02 Dose: 20 mg Documented by: Sodium Chloride (Saline Flush) 10 ml FLUSH ASDIRECTED PRN PRN Reason: Keep Vein Open Tamsulosin HCl (Flomax) 0.4 mg PO DAILY [facility] Last Admin: 04/27/20 10:02 Dose: 0.4 mg Documented by: Thiamine HCl (Vitamin B-1) 100 mg PO DAILY [facility] Last Admin: 04/27/20 10:02 Dose: 100 mg Documented by: Discontinued Medications Chlordiazepoxide HCl (Librium) 25 mg PO Q8H [facility] Last Admin: 04/26/20 15:58 Dose: 25 mg Documented by: Gabapentin (Neurontin) 400 mg PO Q8H [facility] Last Admin: 04/26/20 15:58 Dose: 400 mg Documented by: Sodium Chloride (Normal Saline) 1,000 mls @ 125 mls/hr IV ASDIRECTED [facility] Last Admin: 04/26/20 04:55 Dose: 125 mls/hr Documented by: Multivitamins/Minerals 10 ml/Thiamine HCl 100 mg/ Folic Acid 1 mg/ Magnesium Sulfate 2 gm/ Sodium Chloride 1,015.2 mls @ 100 mls/hr IV ONETIME ONE Stop: 04/26/20 04:09 Last Admin: 04/25/20 18:57 Dose: 100 mls/hr Documented by: Ceftriaxone Sodium 1 gm/ (Sodium Chloride) 50 mls @ 100 mls/hr IV Q24H [facility] Last Admin: 04/26/20 16:04 Dose: 100 mls/hr Documented by: Methylprednisolone Sodium Succinate (Solu-Medrol) 40 mg IVPUSH Q6H [facility] Last Admin: 04/27/20 10:05 Dose: 40 mg Documented by: - Exam Quality Assessment: Supplemental Oxygen, DVT Prophylaxis General: Alert, Oriented, Cooperative, Mild Distress Lungs: Normal Respiratory Effort, Decreased Breath Sounds, Wheezing Cardiovascular: Regular Rate, Regular Rhythm, No Murmurs GI/Abdominal Exam: Soft, Non-Tender, No Organomegaly, No Distention Extremities: Non-Tender, No Pedal Edema Sepsis Event Note - Evaluation Sepsis Screening Result: No Definite Risk - Focused Exam Vital Signs: Vital Signs Temp Pulse Resp BP Pulse Ox 04/27/20 08:00 96.4 F L 68 24 H 131/84 89 L 04/27/20 07:00 54 L 04/27/20 06:00 14 122/71 92 L 04/27/20 04:00 12 117/56 L 87 L 04/27/20 02:00 98.6 F 23 H 117/56 L 91 L 04/27/20 00:00 25 H 109/67 91 L Date Exam was Performed: 04/27/20 Time Exam was Performed: 10:14 - Problem List Review Problem List Initiated/Reviewed/Updated: Yes - My Orders Last 24 Hours: My Active Orders 04/26/20 22:00 Gabapentin [Neurontin] 400 mg PO Q8H chlordiazePOXIDE [Librium] 25 mg PO Q8H 04/27/20 10:05 Patient Status [ADT] Routine 04/27/20 10:07 Discontinue Telemetry Monitoring [Cardiac Monitoring Discontinue] [RC] Click to Edit 04/28/20 08:00 predniSONE 40 mg PO WITHBREAKFAST - Plan Plan:: ASSESSMENT AND PLAN HYPOXIC RESPIRATORY FAILURE-improvement from admission with less shortness of breath, he feels as though he is close to baseline with his respiratory status -Supplemental oxygen as needed -Nebulized albuterol and DuoNebs -Prednisone 40 mg p.o. daily -IV doxycycline -Continue use of noninvasive positive pressure ventilation as needed COPD EXACERBATION-he does use oxygen at night, but not during the day -Management as above BRONCHITIS -Management as above ALCOHOL INTOXICATION-resolved, no evidence of alcohol withdrawal -Alcohol withdrawal protocol -Gabapentin 400 mg p.o. every 8 hours MAINTENANCE ISSUES -DVT prophylaxis; Lovenox 40 mg subcu daily -GI prophylaxis; not indicated -Klein catheter; not indicated -Nutrition; regular diet -Nicotine dependence; nicotine patch and gum CODE STATUS-FULL CODE ADMISSION STATUS-patient will be admitted to inpatient status, expect at least a 2 night hospital stay for evaluation and management of problems as outlined above. At the time of this admission I do not reasonably expected evaluation and management of this problem will require more than a 96 hour hospital stay. DISPOSITION-anticipate discharge to home after the hospital stay. PRIMARY CARE PROVIDER-
[2020-04-27] MEDS: Enoxaparin 40 MG/0.4 ML Syringe SUBCUT SCH (17:03)
[2020-04-27] MEDS: Doxycycline 100 MG Cap PO SCH (17:30)
[2020-04-27] MEDS ORDERED: LORazepam 1 MG Tab ONE (20:02)
[2020-04-27] MEDS: LORazepam 1 MG Tab PO PRN (20:04)
[2020-04-27] MEDS: Acetaminophen 325 MG Tab PO PRN (21:55)
[2020-04-28] MEDS: LORazepam 1 MG Tab PO PRN (00:08)
[2020-04-28] MEDS: Doxycycline 100 MG Cap PO SCH (05:42)
[2020-04-28] MEDS: chlordiazePOXIDE 25 MG Cap PO SCH (05:43)
[2020-04-28] MEDS: Gabapentin 400 MG Cap PO SCH (05:43)
[2020-04-28] MEDS: Albuterol/Ipratropium 3.0-0.5 MG/3 ML Neb Soln NEB SCH (06:59)
[2020-04-28] MEDS: Glycopyrrolate 15.6 MCG Cap.W.Dev Kit of 6 IH SCH (06:59)
[2020-04-28] MEDS: Fluticasone-Salmeterol 232-14 MCG Powder Inhalent INH SCH (06:59)
[2020-04-28] MEDS ORDERED: predniSONE 20 MG Tab PO SCH (08:00)
[2020-04-28] MEDS: Folic Acid 1 MG Tab PO SCH (08:15)
[2020-04-28] MEDS: Tamsulosin 0.4 MG Cap.ER PO SCH (08:16)
[2020-04-28] MEDS: Sertraline 50 MG Tab PO SCH (08:16)
[2020-04-28] MEDS: Cetirizine 10 MG Tab PO SCH (08:17)
[2020-04-28] MEDS: Lactobacillus Rhamnosus GG (Probiotic) Cap PO SCH (08:18)
[2020-04-28] MEDS: Aspirin 81 MG Tab.EC PO SCH (08:18)
[2020-04-28] MEDS: Thiamine 100 MG Tab PO SCH (08:20)
[2020-04-28] MEDS: Nicotine 21 MG/24 Hr Patch TRDERM SCH (08:20)
[2020-04-28] MEDS: Simvastatin 20 MG Tab PO SCH (08:20)
[2020-04-28 08:42] VITALS: BP 112/70; PULSE 71
--- NOTE | 2020-04-28 08:56 | PCM.DCSUM1 ---
Discharge Summary - Hospital Course Brief History: Mr. Hernández is a 64-year-old gentleman who was admitted through the emergency department with shortness of breath and hypoxia, secondary to COPD exacerbation and underlying bronchitis. - Discharge Data Discharge Date: 04/28/20 Discharge Disposition: DC/Tfer to Inpt Rehab Fac 62 Condition: Fair - Referral to Home Health Primary Care Physician: PCP None - Discharge Diagnosis/Problem(s) (1) Hypoxia SNOMED Code(s): 701328200 ICD Code: R09.02 - HYPOXEMIA Status: Acute Current Visit: Yes (2) Bronchitis SNOMED Code(s): 27742434 ICD Code: J40 - BRONCHITIS, NOT SPECIFIED ACUTE OR CHRONIC Status: Acute Current Visit: Yes (3) Alcohol intoxication SNOMED Code(s): 55463572 ICD Code: F10.929 - ALCOHOL USE, UNSPECIFIED WITH INTOXICATION, UNSPECIFIED Status: Acute Current Visit: No Qualifiers: Complication of substance-induced condition: uncomplicated Qualified Code(s): F10.920 - Alcohol use, unspecified with intoxication, uncomplicated (4) COPD exacerbation SNOMED Code(s): 913388396 ICD Code: J44.1 - CHRONIC OBSTRUCTIVE PULMONARY DISEASE W (ACUTE) EXACERBATION Status: Acute Current Visit: No - Patient Summary/Data Hospital Course: Mr. Hernández is a 64-year-old gentleman who I was asked to see in the emergency department for admission because of hypoxia, COPD exacerbation, and alcohol intoxication. At the time I saw him he was very intoxicated and unable to provide a meaningful history concerning recent symptoms or events. Information obtained from emergency department staff was that he had been found unresponsive outside of [facility]. EMS was activated and when they arrived he was found to be hypoxic with oxygen saturation in the low 80s. He was placed on supplemental oxygen and brought into the emergency department for further evaluation. Oxygen saturations remained fairly good with supplemental oxygen. Chest x-ray showed no obvious infiltrates, he does have a known history of COPD. He did go outside of the emergency room for cigarette and became extremely short of breath with decreased level of consciousness and oxygen saturations into the low 70s. Following that he did agreed to admission but then shortly thereafter attempted to leave AGAINST MEDICAL ADVICE. He was found at the bottom of the ambulance ramp again hypoxic and unresponsive. He did agreed to hospitalization and was given IV fluids for hydration. Because of COPD exacerbation he was placed on Solu-Medrol 40 mg IV every 6 hours and IV doxycycline and ceftriaxone for underlying bronchitis. He was started on alcohol withdrawal protocol as well as gabapentin 400 mg every 8 hours for management of possible alcohol withdrawal. He remained stable throughout hospitalization and had no significant evidence of alcohol withdrawal. Respiratory status gradually improved and he was transitioned to oral doxycycline as well as oral prednisone. He will be discharged with home oxygen 2 L/min via nasal cannula. He will also receive 2 additional days of antibiotic therapy with oral doxycycline and 3 additional days of oral prednisone. He will be discharged to inpatient alcohol treatment. Activity will be as tolerated and he will resume his usual diet. Follow-up appointment will be scheduled with primary care provider within 1 week. - Patient Instructions Diet: Usual Diet as Tolerated Activity: As Tolerated Other/Special Instructions: Please schedule follow-up appointment with primary care provider within 1 week. - Discharge Plan *PRESCRIPTION DRUG MONITORING PROGRAM REVIEWED*: Not Applicable *COPY OF PRESCRIPTION DRUG MONITORING REPORT IN PATIENT SUE: Not Applicable Prescriptions/Med Rec: Lactobacillus Rhamnosus GG [Culturelle] 1 cap PO BID #60 cap predniSONE 40 mg PO WITHBREAKFAST #6 tablet Doxycycline [Vibramycin] 100 mg PO Q12H #4 cap Home Medications: Home Meds Mirtazapine 45 mg PO BEDTIME 03/30/16 [History] Sertraline [Zoloft] 50 mg PO DAILY 03/30/16 [History] Simvastatin [Zocor] 20 mg PO DAILY 03/30/16 [History] Tamsulosin [Flomax] 0.4 mg PO DAILY 03/30/16 [History] Albuterol [IJD: Albuterol HFA] 2 puff INH BID 07/29/16 [History] Budesonide/Formoterol [Symbicort 160-4.5 MCG] 2 puff INH BID 10/19/19 [History] Tiotropium [place] [Spiriva Respimat] 1 inh INH DAILY 10/19/19 [History] Aspirin [Aspir 81] 81 mg PO DAILY 04/25/20 [History] Cetirizine HCl 10 mg PO DAILY 04/25/20 [History] Cholecalciferol (Vitamin D3) [Vitamin D3] 25 mcg PO DAILY 04/25/20 [History] Multivitamin [Multivitamins] 1 cap PO DAILY 04/25/20 [History] Doxycycline [Vibramycin] 100 mg PO Q12H #4 cap 04/28/20 [Rx] Lactobacillus Rhamnosus GG [Culturelle] 1 cap PO BID #60 cap 04/28/20 [Rx] predniSONE 40 mg PO WITHBREAKFAST #6 tablet 04/28/20 [Rx] Oxygen Therapy Mode: Nasal Cannula Oxygen Flow Rate (L/min): 2 Referrals: Gi Arguelles NP [Ordering Only Provider] - - Discharge Summary/Plan Comment DC Time >30 min.: No - Patient Data Vitals - Most Recent: Last Vital Signs Temp 96.2 F L 04/28/20 08:30 Pulse 71 04/28/20 08:30 Resp 22 H 04/28/20 08:30 BP 112/70 04/28/20 08:30 Pulse Ox 92 L 04/28/20 08:30 Weight - Most Recent: 186 lb 8 oz I&O - Last 24 hours: Intake & Output 04/27/20 04/28/20 04/28/20 22:59 06:59 14:59 Intake Total 480 750 Output Total 200 Balance 280 750 Med Orders - Current: Current Medications Acetaminophen (Tylenol) 650 mg PO Q4H PRN PRN Reason: Pain (Mild 1-3)/fever Last Admin: 04/27/20 21:55 Dose: 650 mg Documented by: Albuterol (Proventil Neb Soln) 2.5 mg NEB Q4H PRN PRN Reason: Shortness Of Breath/wheezing Albuterol/Ipratropium (Duoneb 3.0-0.5 Mg/3 Ml) 3 ml NEB QIDRT [facility] Last Admin: 04/28/20 06:59 Dose: 3 ml Documented by: Aspirin (Halfprin) 81 mg PO DAILY [facility] Last Admin: 04/28/20 08:18 Dose: 81 mg Documented by: Cetirizine HCl (Zyrtec) 10 mg PO DAILY [facility] Last Admin: 04/28/20 08:17 Dose: 10 mg Documented by: Chlordiazepoxide HCl (Librium) 25 mg PO Q8H [facility] Last Admin: 04/28/20 05:43 Dose: 25 mg Documented by: Doxycycline Hyclate (Vibramycin) 100 mg PO Q12H [facility] Last Admin: 04/28/20 05:42 Dose: 100 mg Documented by: Enoxaparin Sodium (Lovenox) 40 mg SUBCUT Q24H [facility] Last Admin: 04/27/20 17:03 Dose: 40 mg Documented by: Folic Acid (Folic Acid) 1 mg PO DAILY [facility] Last Admin: 04/28/20 08:15 Dose: 1 mg Documented by: Gabapentin (Neurontin) 400 mg PO Q8H [facility] Last Admin: 04/28/20 05:43 Dose: 400 mg Documented by: Glycopyrrolate (Seebri Neohaler) 15.6 mcg IH BIDRT [facility] Last Admin: 04/28/20 06:59 Dose: 1 puff Documented by: Lactobacillus Rhamnosus (Culturelle) 1 cap PO BID [facility] Last Admin: 04/28/20 08:18 Dose: 1 cap Documented by: Lorazepam (Ativan) 0 mg IV ASDIRECTED PRN; Protocol PRN Reason: ETOH WITHDRAWAL Last Admin: 04/25/20 20:50 Dose: 0.5 mg Documented by: Lorazepam (Ativan) 1 mg PO Q4H PRN PRN Reason: Anxiety Last Admin: 04/28/20 00:08 Dose: 1 mg Documented by: Nicotine (Habitrol) 21 mg TRDERM DAILY [facility] Last Admin: 04/28/20 08:20 Dose: 21 mg Documented by: Nicotine Polacrilex (Nicorelief) 2 mg CHEW Q1H PRN PRN Reason: Other Ondansetron HCl (Zofran) 4 mg IV Q4H PRN PRN Reason: Nausea/Vomiting Last Admin: 04/26/20 05:00 Dose: 4 mg Documented by: Polyethylene Glycol (Miralax) 17 gm PO DAILY PRN PRN Reason: Constipation Prednisone (Prednisone) 40 mg PO WITHBREAKFAST [facility] Last Admin: 04/28/20 08:14 Dose: 40 mg Documented by: Fluticasone/Salmeterol (Fluticasone-Salmeterol 232-14 Mcg Powder Inha) 1 puff INH BIDRT [facility] Last Admin: 04/28/20 06:59 Dose: 1 puff Documented by: Sertraline HCl (Zoloft) 50 mg PO DAILY [facility] Last Admin: 04/28/20 08:16 Dose: 50 mg Documented by: Simvastatin (Zocor) 20 mg PO DAILY [facility] Last Admin: 04/28/20 08:20 Dose: 20 mg Documented by: Sodium Chloride (Saline Flush) 10 ml FLUSH ASDIRECTED PRN PRN Reason: Keep Vein Open Tamsulosin HCl (Flomax) 0.4 mg PO DAILY [facility] Last Admin: 04/28/20 08:16 Dose: 0.4 mg Documented by: Thiamine HCl (Vitamin B-1) 100 mg PO DAILY [facility] Last Admin: 04/28/20 08:20 Dose: 100 mg Documented by: Discontinued Medications Chlordiazepoxide HCl (Librium) 25 mg PO Q8H [facility] Last Admin: 04/26/20 15:58 Dose: 25 mg Documented by: Gabapentin (Neurontin) 400 mg PO Q8H [facility] Last Admin: 04/26/20 15:58 Dose: 400 mg Documented by: Sodium Chloride (Normal Saline) 1,000 mls @ 125 mls/hr IV ASDIRECTED [facility] Last Admin: 04/26/20 04:55 Dose: 125 mls/hr Documented by: Multivitamins/Minerals 10 ml/Thiamine HCl 100 mg/ Folic Acid 1 mg/ Magnesium Sulfate 2 gm/ Sodium Chloride 1,015.2 mls @ 100 mls/hr IV ONETIME ONE Stop: 04/26/20 04:09 Last Admin: 04/25/20 18:57 Dose: 100 mls/hr Documented by: Doxycycline Hyclate 100 mg/ (Sodium Chloride) 100 mls @ 100 mls/hr IV Q12H [facility] Last Admin: 04/27/20 17:02 Dose: 100 mls/hr Documented by: Ceftriaxone Sodium 1 gm/ (Sodium Chloride) 50 mls @ 100 mls/hr IV Q24H [facility] Last Admin: 04/26/20 16:04 Dose: 100 mls/hr Documented by: Lorazepam (Ativan) Confirm Administered Dose 1 mg .ROUTE .STK-MED ONE Stop: 04/27/20 20:03 Last Admin: 04/27/20 20:08 Dose: Not Given Documented by: Methylprednisolone Sodium Succinate (Solu-Medrol) 40 mg IVPUSH Q6H [facility] Last Admin: 04/27/20 10:05 Dose: 40 mg Documented by: - Exam Quality Assessment: Reports: DVT Prophylaxis General: Reports: Alert, Oriented, Cooperative, No Acute Distress Lungs: Reports: Decreased Breath Sounds, Wheezing. Denies: Rales, Rhonchi Cardiovascular: Reports: Regular Rate, Regular Rhythm, No Murmurs GI/Abdominal Exam: Soft, Non-Tender, No Organomegaly, No Distention Extremities: Non-Tender, No Pedal Edema
== END 2020-04-28 10:25 | DRG 897 ==
LOC: JP.ED 12:41 → JP.ICU 14:31 → JP.ED 15:27
PROVIDERS: ADMIT Hospitalist; ATTEND Hospitalist
DX: F10.129 Alcohol abuse with intoxication, unspecified (principal); J44.1 Chronic obstructive pulmonary disease with (acute) exacerbation; J44.0 Chronic obstructive pulmonary disease with (acute) lower respiratory infection; J20.9 Acute bronchitis, unspecified; F17.210 Nicotine dependence, cigarettes, uncomplicated; N40.0 Benign prostatic hyperplasia without lower urinary tract symptoms; G89.29 Other chronic pain; M54.9 Dorsalgia, unspecified; F32.9 Major depressive disorder, single episode, unspecified; Z85.46 Personal history of malignant neoplasm of prostate; Z79.82 Long term (current) use of aspirin; Z79.899 Other long term (current) drug therapy; Z88.0 Allergy status to penicillin; Z91.030 Bee allergy status; Z20.828 Contact with and (suspected) exposure to other viral communicable diseases
CPT/HCPCS: 36415; 36600; 71045; 71045-26; 80048; 80053; 80307; 82803; 83735; 85025; 94640; 94660; 99222-AI; 99231; 99232; 99238; 99285; 99285-25; A9270-GY; J0696; J1650; J2060; J2405; J2920; J3411; J3475; J3490; J7030; J7050; J7512; J7620-GY; U0002